=== PATIENT | female | born 1970 | race Caucasian/White ===

== ENCOUNTER → 2017-04-23 17:43 | Outpatient (CLI) | payer MEDICAID, SELFPAY ==
--- NOTE | 2017-04-23 17:50 | CT_ITS ---
STUDY: CT MAXILLOFACIAL SINUSES REASON FOR EXAM: Female, 46 years old. Sinusitis. Remote history of prior sinus surgery. RADIATION DOSAGE (If Supplied By Facility): CTDIvol = ( 33.45 ) mGy, DLP = ( 784.73 ) mGycm TECHNIQUE: The patient was scanned in a multi detector CT scanner. High resolution axial imaging was performed without the administration of intravenous contrast material. Sagittal and coronal images were reconstructed. Individualized dose optimization techniques were used for this CT. COMPARISON: None. FINDINGS: FRONTAL SINUSES: Normal aeration, without mucosal inflammatory disease. ETHMOIDAL SINUSES: There is opacification of the ethmoid sinuses bilaterally. MAXILLARY SINUSES: There is opacification of the left maxillary sinus with obliteration of the left ostiomeatal complex. There is diffuse mucosal thickening of the right maxillary sinus with obliteration of the right ostiomeatal meatal complexes due to mucosal hypertrophy. SPHENOIDAL SINUSES: Small air-fluid level in the left sphenoid sinus. There is patency of the bilateral maxillary infundibuli with normal uncinate processes, ethmoid bullae, and hiatus semilunaris. Normal bilateral middle turbinates. Normal bilateral inferior turbinates. There is a right sided nasal septal deviation, but without a nasal septal spur. The left nasal fossa is compromised due to soft tissue density most likely polyposis. The visualized osseous structures are normal. The visualized bilateral orbital contents are normal. CT/Sinus/Facial Bone IMPRESSION: Hare sinusitis as described. Findings suggestive of left nasal polyposis. Electronically Signed: Rachid Mathis MD at 10:51 EST Tel [phone], Service support ,
== END ==
PROVIDERS: Visit Provider Otolaryngology
DX: J32.9 Chronic sinusitis, unspecified (principal)
CPT/HCPCS: 70486

== ENCOUNTER 2017-06-02 07:42 | Day surgery (SDC) | payer MEDICAID, SELFPAY ==
[2017-05-30 12:21] LABS: Anion Gap 5 (5-15); BUN 10 mg/dL (7-18); BUN/Creat Ratio 16.2 RATIO (10-20); Calcium,Total 8.6 mg/dL (8.5-10.1); Chloride 103 mmol/L (98-107); Creatinine, Serum 0.62 mg/dL (0.55-1.02); EST Glomerular Filtration Rate 110 mL/min (>60); Est Glom Filt Rate - Afr Amer 133 mL/min (>60); Glucose 92 mg/dL (74-106); Potassium 4.4 mmol/L (3.5-5.1); Sodium Level 137 mmol/L (136-145)
[2017-06-01 11:11] VITALS: BP 145/96; PULSE 77; TEMP 36.9; O2SAT 100; BMI 23.0
[2017-06-02] VITALS (23 sets, daily range): BP systolic 130–168; BP diastolic 82–124; PULSE 74–87; RESP 16–18; TEMP 36.3–36.9; O2SAT 94–97
[2017-06-02 08:10] LABS: Internal QC Validated? YES +Cl - CLEAR BKGD
[2017-06-02 08:11] LABS: Pregnancy, Urine Negative Negative
--- NOTE | 2017-06-02 09:10 | ETH_PTH ---
PATIENT: FLORECITA ZAFAR [place] [facility] [id number] AGE/SX: 47/F ROOM: RE06/02/[address]: Dr. Shashank Rossi MD : 1970 BED: DIS: 06/02/2017 SPEC #: [id number] RECD: 06/02/17 13:39 STATUS: CONOR ILA #: [id number] ISSAC: 06/02/17 09:[address]: Shashank Rossi DEPT: SURGICAL PATHOLOGY RECD BY: Jens Hernández ENTERED: 06/02/17 13:48 SP TYPE: ETH TISS OTHR DR: DO Dr. Erik Hobson MD Tissues: A - Ethmoid sinus, NOS B - Ethmoid sinus, NOS Procedures: Decalcification bone/plaque Surgery Specimen Level IV HEADER OPERATION: Functional endoscopic sinus surgery PRE-OP DIAGNOSIS: Chronic pansinusitis TISSUE SUBMITTED: A. Right sinus contents, B. Left sinus contents MICROSCOPIC DIAGNOSIS A. Right sinus contents: Fragments of respiratory mucosa including turbinate with chronic inflammation and bone. B. Left sinus contents: Fragments of respiratory mucosa including turbinate with chronic inflammation and bone. OLGA:yumiko 06/09/17 MICROSCOPIC DESCRIPTION Slides are reviewed. GROSS DESCRIPTION A - Received in fixative is one container labeled with the patient's name and designated right sinus contents. The specimen consists of multiple pieces of sow soft tissue including turbinate that in aggregate measure 2.5 x 1.5 x 0.3 cm. The entire specimen is submitted in one cassette after decalcification. B - Received in fixative is one container labeled with the patient's name and designated left sinus contents. The specimen consists of multiple pieces of sow soft tissue including bone and turbinate that in aggregate measure 3 x 2.5 x 0.3 cm. The entire specimen is submitted in one cassette after decalcification. / OLGA:yumiko 06/02/17 TC:3 CPT: 91800 x2, 82479 x2
--- NOTE | 2017-06-02 09:38 | PCM.DC ---
You will use the following diet at home:: No restrictions Discharge Activity: Return to Normal Activity Call your doctor if your incision/area has: Increased Pain/ Swelling Additional Dressing/Incision Instructions:: irrigate nose with saline 5-6 times/day Allergies/Adverse Reactions: Allergies Penicillins [PCN] Allergy (Verified 05/26/17 11:16) Rash Medications to take at Discharge Hydrochlorothiazide 12.5 mg PO DAILY 05/26/17 Norethindrone-E.estradiol-Iron [Blisovi 24 Fe Tablet] 1 each PO DAILY 05/26/17 Hydrocodone/Acetaminophen [Grant 5-325 Tablet] 1 ea PO Q6H 4 Days #15 tab 06/02/17 Levofloxacin [Levaquin] 500 mg PO DAILY 06/02/17 The following prescriptions were given: Hydrocodone/Acetaminophen [Grant 5-325 Tablet] 1 ea PO Q6H 4 Days #15 tab Primary Care Physician: Gurpreet De La Paz DO [Primary Care Provider] - Please Follow Up With: Arian Rossi MD When: 1 week
[2017-06-02] MEDS: Clindamycin 900 MG/50 ML BAG 75 MG IV (09:39)
[2017-06-02] MEDS: Oxymetazoline 0.05% 1 SPRAY SPRAY.BTL 15 SPRAY ×2 (10:11→13:20)
--- NOTE | 2017-06-02 11:13 | PCM.OPRPT ---
Problem List (1) Chronic pansinusitis Status: Chronic Report of Operation Date of Procedure: 06/02/17 Pre-Operative Diagnosis: chronic pansinusitis Post-Operative Diagnosis: chronic pansinusitis Surgery/Procedure Performed:: 1. endoscopic ethmoidectomy, anterior, right and left. 2. endoscopic maxillary antrostomy with tissue removal, right and left. 3. endoscopic frontal sinus exploration with tissue removal, right and left. 4. endoscopic sphenoidotomy with tissue removal, right and left. 5. computer-assisted navigation Type of Anesthesia:: General Specimen's removed: right and left sinus contents Estimated Blood Loss (mL): 50cc Description of Procedure: on the day of the procedure, after appropriate informed consent was obtained, the patient was brought to the operating room and placed in supine position on the operating table. she was placed under general endotracheal anesthesia by the anesthesiologist. the endotracheal tube was secured. the facial recognition and image guidance was set up. the bilateral nasal cavities were decongested with oxymetazoline soaked pledgets. using the zero degree endoscope, the superior attachment of the middle turbinate was injected on the right and left with lidocaine/epinephrine. the acclarent balloon sinuplasty catheter was advanced lateral to the left middle turbinate. the fiberoptic light wire was gently advanced into the frontal sinus; this was confirmed with transillumination. the balloon was advanced and inflated to 12atm and deflated. the acclarent balloon sinuplasty catheter was advanced lateral to the right middle turbinate. the fiberoptic light wire was gently advanced into the frontal sinus; this was confirmed with transillumination. the balloon was advanced and inflated to 12atm and deflated. the left nasal cavity was visualized using the zero degree endoscope. the middle turbinate was medialized. the microdebrider was used to remove middle meatus polyps. a maxillary antrostomy and uncinectomy was completed with a jamal elevator and a leticia blakesley forceps. contents were removed. copious amounts of pus began flowing from the left maxillary sinus. the ethmoid bulla was entered bluntly with a suction catheter and an anterior ethmoidectomy was performed with a j curette and the microdebrider. this was taken superiorly to the skull base and laterally to the lamina laterally. a stankewicz maneuver was performed and no laminar defect was noted. the natural sphenoid os was opened with a thru cut and contents were evacuated. the anterior/inferior portion of the middle turbinate was removed with corby scizzors. the area was irrigated with saline and pledgets were placed. hemostasis was achieved. the right nasal cavity was visualized using the zero degree endoscope. the middle turbinate was medialized. the microdebrider was used to remove middle meatus polyps. a revision maxillary antrostomy and uncinectomy was completed with a jamal elevator and a leticia blakesley forceps. contents were removed. copious amounts of pus began flowing from the left maxillary sinus. the ethmoid bulla was entered bluntly with a suction catheter and an anterior ethmoidectomy was performed with a j curette and the microdebrider. this was taken superiorly to the skull base and laterally to the lamina laterally. a stankewicz maneuver was performed and no laminar defect was noted. the natural sphenoid os was opened with a thru cut and contents were evacuated. the anterior/inferior portion of the middle turbinate was removed with corby scizzors. the area was irrigated with saline and pledgets were placed. hemostasis was achieved. the patient was awoken from anesthesia and transferred to the PACU in stable condition. Grafts/Implants Used: none
--- NOTE | 2017-06-02 11:33 | OP.PCM_ITS ---
Problem List (1) Chronic pansinusitis Status: Chronic Report of Operation Date of Procedure: 06/02/17 Pre-Operative Diagnosis: chronic pansinusitis Post-Operative Diagnosis: chronic pansinusitis Surgery/Procedure Performed:: 1. endoscopic ethmoidectomy, anterior, right and left. 2. endoscopic maxillary antrostomy with tissue removal, right and left. 3. endoscopic frontal sinus exploration with tissue removal, right and left. 4. endoscopic sphenoidotomy with tissue removal, right and left. 5. computer- assisted navigation Type of Anesthesia:: General Specimen's removed: right and left sinus contents Estimated Blood Loss (mL): 50cc Description of Procedure: on the day of the procedure, after appropriate informed consent was obtained, the patient was brought to the operating room and placed in supine position on the operating table. she was placed under general endotracheal anesthesia by the anesthesiologist. the endotracheal tube was secured. the facial recognition and image guidance was set up. the bilateral nasal cavities were decongested with oxymetazoline soaked pledgets. using the zero degree endoscope , the superior attachment of the middle turbinate was injected on the right and left with lidocaine/epinephrine. the acclarent balloon sinuplasty catheter was advanced lateral to the left middle turbinate. the fiberoptic light wire was gently advanced into the frontal sinus; this was confirmed with transillumination. the balloon was advanced and inflated to 12atm and deflated. the acclarent balloon sinuplasty catheter was advanced lateral to the right middle turbinate. the fiberoptic light wire was gently advanced into the frontal sinus; this was confirmed with transillumination. the balloon was advanced and inflated to 12atm and deflated. the left nasal cavity was visualized using the zero degree endoscope. the middle turbinate was medialized. the microdebrider was used to remove middle meatus polyps. a maxillary antrostomy and uncinectomy was completed with a jamal elevator and a leticia blakesley forceps. contents were removed. copious amounts of pus began flowing from the left maxillary sinus. the ethmoid bulla was entered bluntly with a suction catheter and an anterior ethmoidectomy was performed with a j curette and the microdebrider. this was taken superiorly to the skull base and laterally to the lamina laterally. a stankewicz maneuver was performed and no laminar defect was noted. the natural sphenoid os was opened with a thru cut and contents were evacuated. the anterior/inferior portion of the middle turbinate was removed with corby scizzors. the area was irrigated with saline and pledgets were placed. hemostasis was achieved. the right nasal cavity was visualized using the zero degree endoscope. the middle turbinate was medialized. the microdebrider was used to remove middle meatus polyps. a revision maxillary antrostomy and uncinectomy was completed with a jamal elevator and a leticia blakesley forceps. contents were removed. copious amounts of pus began flowing from the left maxillary sinus. the ethmoid bulla was entered bluntly with a suction catheter and an anterior ethmoidectomy was performed with a j curette and the microdebrider. this was taken superiorly to the skull base and laterally to the lamina laterally. a stankewicz maneuver was performed and no laminar defect was noted. the natural sphenoid os was opened with a thru cut and contents were evacuated. the anterior/inferior portion of the middle turbinate was removed with corby scizzors. the area was irrigated with saline and pledgets were placed. hemostasis was achieved. the patient was awoken from anesthesia and transferred to the PACU in stable condition. Grafts/Implants Used: none
--- NOTE | 2017-06-02 13:12 | PCM.OPRPT ---
Problem List (1) Chronic pansinusitis Status: Acute (2) Epistaxis Status: Acute Report of Operation Date of Procedure: 06/02/17 Pre-Operative Diagnosis: post-procedure hemorrhage, epistaxis Post-Operative Diagnosis: post-procedure hemorrhage, epistaxis Surgery/Procedure Performed:: control of sinonasal hemorrhage, endoscopic Type of Anesthesia:: General Estimated Blood Loss (mL): 5cc Description of Procedure: due to the persistent light oozing/epistaxis and history of bleeding with her prior sinus procedure, it was deemed necessary to bring the patient back to the operating room for definitive control of bleeding. after appropriate informed consent was obtained, the patient was brought to the operating room and placed in supine position on the operating table. she was placed under general endotracheal anesthesia by the anesthesiologist. the endotracheal tube was secured, the eyes were taped. the pledgets were removed from the nasal cavities. the zero degree endoscope was used to evaluate the right and left nasal cavities. the patient had a left superior bleeding source near the area of the ethmoidectomy and turbinectomy stump. the area was cauterized, floseal was placed and surgicel packing was removed. small areas of bleeding were cauterized gently with the suction cautery. floseal was placed in the right sinonasal cavity along with surgicel. the area was left alone for 10 minutes and no major bleeding was seen. an orogastric tube was used to evacuate blood/clots from the stomach and pharynx. the patient was awoken from anesthesia and transferred to the PACU in stable condition.
== END 2017-06-02 18:20 | disposition home or self-care (01) ==
LOC: SDC 07:44 → AC 07:45
PROVIDERS: Family Provider Family Medicine; PCP Family Medicine; Visit Provider Otolaryngology
PROC: (CPT 31238; principal; 2017-06-02 08:40)
DX: J32.4 Chronic pansinusitis (principal); L76.22 Postprocedural hemorrhage of skin and subcutaneous tissue following other procedure; R04.0 Epistaxis; I10 Essential (primary) hypertension; Z79.899 Other long term (current) drug therapy; Z87.891 Personal history of nicotine dependence
CPT/HCPCS: 31238; 31254; 31267; 31276; 31288; 36415; 80048; 81025; 88305; 88311; J7120; J2405

== ENCOUNTER 2017-06-22 00:57 | Day surgery (SDC) | payer MEDICAID, SELFPAY ==
[2017-06-22] VITALS (9 sets, daily range): BP systolic 129–170; BP diastolic 85–101; PULSE 76–109; RESP 16–18; TEMP 36.7–37.2; O2SAT 93–100; BMI 24.5
--- NOTE | 2017-06-22 01:09 | ED.VISSUMM ---
- ER Visit Summary Date of Service: 06/22/17 Chief Complaint: Nosebleed History of Present Illness: The patient is a 47 F with a left-sided nosebleed. She has a history of FESS surgery at the end of May. She has had intermittent bleeding over the past week, worse this evening. She was transferred from an outside facility to go to the operating room per Dr. Jin. Physical Examination: Hypertensive but otherwise vitals unremarkable. Packing in left nostril. Airway intact. Heart regular. Lungs clear. Skin appears normal. Test Results: Labs pending. Emergency Department Course and Treatment: Dr. Jin at the bedside. Patient will be taken to the OR and admitted to the hospital. Treatment Plan: As above Disposition: OR Impression: 1. Acute left epistaxis This note was generated with [employer] dictation software. It may contain incorrect words, spelling, and punctuation that were not noted in review of the chart prior to signing ED Disposition - Plan for ED Patient: Chief Complaint: Nosebleed Referrals: Gurpreet De La Paz DO [Primary Care Provider] -
[2017-06-22 01:24] LABS: Absolute Lymphocyte Count 1.36 X10^3/ul (0.83-4.51); Absolute Neutrophil Count 6.7 X10^3/uL (2.0-7.7); Basophil# 0.03 X10^3/uL; Basophil% 0.3 % (0-1); Eosinophil# 0.25 X10^3/uL; Eosinophils% 2.8 % (0-5); Hematocrit 35.9 % (37-47); Hemoglobin 11.9 g/dl (12.0-15.0); Lymphocyte # 1.36 X10^3/ul (4.0); Lymphocyte % 15.4 % (19-41); Mean Corp Hgb Conc 33.1 g/gl (32-36); Mean Corpuscular Hgb 32.9 pg (27.0-32.0); Mean Corpuscular Volume 99.2 fL (81-99); Mean Platelet Vol. 9.3 fl (6.2-12.0); Monocyte% 5.7 % (0-10); Neutrophil # 6.66 X10^3/uL (2.7-7.7); Neutrophil % 75.7 % (47-70); Platelet Count 302 K/mm3 (150-450); RBC Distribution Width CV 12.6 % (11.6-14.6); RBC Distribution Width SD 44.6 fl (35.1-43.9); Red Blood Count 3.62 M/mm3 (4.2-5.4); White Blood Count 8.8 K/mm3 (4.4-11.0)
[2017-06-22 01:25] LABS: POSITIVE COUNT NO; POSITIVE DIFFERENTIAL NO; POSITIVE MORPHOLOGY NO
[2017-06-22 01:37] LABS: Partial Thromboplast Time 28.6 Seconds (24.1-36.2); Prothrombin Time (Protime)PT. 12.9 SECONDS (11.7-14.9)
--- NOTE | 2017-06-22 02:04 | CON.PCM_ITS ---
Problem List (1) Epistaxis Status: Acute Reason for Consult Date of Consultation: 06/22/17 History of Present Illness: The patient is a 47 year old F nearly 3 weeks s/p FESS who woke up a few hours ago with brisk bleeding from her left nasal cavity. a rhino rocket was placed on the left by an ED physician at [facility]. Past Medical History Allergies Penicillins [PCN] Allergy (Verified 06/22/17 00:57) Rash Home Medications: Ambulatory Orders Medication Instructions Recorded Hydrochlorothiazide 12.5 mg PO DAILY 05/26/17 Norethindrone-E.estradiol-Iron 1 each PO DAILY 05/26/17 [Blisovi 24 Fe Tablet] Hydrocodone/Acetaminophen [[place] 1 ea PO Q6H 4 Days #15 tab 06/02/17 5-325 Tablet] Smoking Status: Never smoker Review of Systems Constitutional: Denies: Chills, Fever, Weight Change Cardiovascular: Denies: Chest Pain, Palpitations Respiratory: Denies: Cough, Shortness of breath at rest, Sputum production Gastrointestinal: Reports: Nausea Subjective: x - Physical Exam General: Alert, Oriented x3 HEENT: - - left rhino rocket in place, slight ooze Neck: No Nodes Lungs: Clear to auscultation, Normal air movement Vital Signs Temp Pulse Resp BP Pulse Ox 98.9 F 103 H 18 155/100 H 100 06/22/17 01:58 06/22/17 01:58 06/22/17 01:58 06/22/17 01:58 06/22/17 01:58 Oxygen Delivery Method Room Air Weight: 67 kg Body Mass Index (BMI) 24.5 Laboratory Tests Past 24 Hrs 06/22/17 06/22/17 06/22/17 01:07 01:07 01:07 WBC 8.8 RBC 3.62 L Hgb 11.9 L Hct 35.9 L MCV 99.2 H MCH 32.9 H MCHC 33.1 RDW 12.6 RDW Differential 44.6 H Plt Count 302 MPV 9.3 Immature Gran % (Auto) 0.100 Neut % (Auto) 75.7 H Lymph % (Auto) 15.4 L Humphreys % (Auto) 5.7 Eos % (Auto) 2.8 Baso % (Auto) 0.3 Absolute Neuts (auto) 6.7 Absolute Lymphs (auto) 1.36 Total Counted Not Reportable PT 12.9 INR 1.0 APTT 28.6 Blood Type Pending Antibody Screen Pending Assessment/Plan 47 year old female 3 weeks s/p FESS with acute left epistaxis -given the likelihood of ethmoid bleeding on the left and the high probability of failure of anterior nasal packing, we will proceed to the OR for endoscopic cauterization
--- NOTE | 2017-06-22 02:10 | PCM.OPRPT ---
Problem List (1) Epistaxis Status: Acute Report of Operation Date of Procedure: 06/22/17 Pre-Operative Diagnosis: epistaxis Post-Operative Diagnosis: epistaxis Surgery/Procedure Performed:: 1. endoscopic control of nasal hemorrhage. 2. nasal packing Type of Anesthesia:: General Estimated Blood Loss (mL): 10cc Description of Procedure: after appropriate informed consent was obtained, the patient was brought to the operating room and placed in supine position on the operating table. she was placed under general endotracheal anesthesia by the anesthesiologist. the endotracheal tube was secured, the eyes were taped. the left rhino rocket was removed from the nasal cavitiy. the zero degree endoscope was used to evaluate the right and left nasal cavities. the patient did not have an obvious bleeding source, and certainly an arterial pulsation was not seen. multiple raw areas were cauterized with suction cautery. the area was observed for 30 minutes with multiple valsalva maneuvers and no bleeding was seen. surgicel was placed along the middle turbinate stump and a merocel packing was placed. an orogastric tube was used to evacuate blood/clots from the stomach and pharynx. the patient was awoken from anesthesia and transferred to the PACU in stable condition.
[2017-06-22] MEDS: Oxymetazoline 0.05% 1 SPRAY SPRAY.BTL 15 SPRAY (02:14)
--- NOTE | 2017-06-22 03:37 | PCM.DC ---
You will use the following diet at home:: No restrictions Discharge Activity: - - no strenuous activity May shower in (days): 0 Call your doctor if your incision/area has: Sudden Increased Bleeding Allergies/Adverse Reactions: Allergies Penicillins [PCN] Allergy (Verified 06/22/17 00:57) Rash Medications to take at Discharge Hydrochlorothiazide 12.5 mg PO DAILY 05/26/17 Norethindrone-E.estradiol-Iron [Blisovi 24 Fe Tablet] 1 each PO DAILY 05/26/17 Hydrocodone/Acetaminophen [[place] 5-325 Tablet] 1 ea PO Q6H 4 Days #15 tab 06/02/17 Primary Care Physician: Gurpreet De La Paz DO [Primary Care Provider] - Please Follow Up With: Arian Rossi MD When: thursday
== END 2017-06-22 05:05 | disposition home or self-care (01) ==
LOC: ED 01:18 → SDC 01:24
PROVIDERS: Emergency Provider Emergency Medicine; Family Provider Family Medicine; PCP Family Medicine; Visit Provider Otolaryngology
PROC: (CPT 31238; principal; 2017-06-22 01:45)
DX: R04.0 Epistaxis (principal); I10 Essential (primary) hypertension; Z79.891 Long term (current) use of opiate analgesic; Z79.899 Other long term (current) drug therapy
CPT/HCPCS: 31238; 85025; 85610; 85730; 86850; 86900; 99285; J7030; A4216; J2405

== ENCOUNTER → 2018-02-11 19:49 | Outpatient (CLI) | payer MEDICAID, SELFPAY | PROVIDERS: Family Provider Family Medicine; PCP Family Medicine; Referring Provider Otolaryngology; Visit Provider Otolaryngology | DX: J32.9 Chronic sinusitis, unspecified (principal) | CPT/HCPCS: 87070; 87077; 87186; 87205 ==